=== PATIENT | male | born 1945 | race Caucasian/White ===

== ENCOUNTER 2021-05-27 01:19 | Inpatient (IN) | payer MEDICARE ==
[~2021-05-27] VITALS: Ht 180.3 cm; Wt 106.5 kg
[2021-05-27] MEDS ORDERED: ASPIRIN 81 MG TABLET CHEW PO ONE (02:00)
[2021-05-27 02:08] LABS: BASOPHILS % (AUTO) 1 % (0-1); EOSINOPHILS % (AUTO) 2 % (1-7); LYMPHOCYTES % (AUTO) 9 % (22-44); MEAN CORPUSCULAR HEMOGLOBIN 28.8 pg (27.5-34.5); MEAN CORPUSCULAR HGB CONC 32.3 g/dL (33.2-36.2); MEAN PLATELET VOLUME 7.8 fL (7.4-10.4); MONOCYTES % (AUTO) 11 % (2-9); NEUTROPHILS % (AUTO) 77 % (42-75); PLATELET COUNT 153 x10^3/uL (130-400); RED BLOOD COUNT 5.21 x10^6/uL (4.38-5.82); RED CELL DISTRIBUTION WIDTH 16.9 % (9.4-14.8)
[2021-05-27] MEDS ORDERED: ASPIRIN 81 MG TABLET CHEW ONE (02:15)
[2021-05-27 02:18] LABS: ALANINE AMINOTRANSFERASE 84 U/L (12-78); ALBUMIN 3.2 g/dL (3.4-5.0); ANION GAP 11 mmol/L (5-15); CALCIUM 8.8 mg/dL (8.5-10.1); CHLORIDE 97 mmol/L (98-107); CREATININE 2.32 mg/dL (0.7-1.3)
[2021-05-27 02:22] LABS: ALKALINE PHOSPHATASE 83 U/L (45-117); BILIRUBIN,TOTAL 1.3 mg/dL (0.2-1.0); TOTAL PROTEIN 6.9 g/dL (6.4-8.2)
[2021-05-27 02:37] LABS: TROPONIN I 0.225 ng/mL (0.000-0.045)
[2021-05-27] MEDS ORDERED: HEPARIN 5,000 UNITS/ML, 1ML IV PRN (03:30)
[2021-05-27] MEDS ORDERED: HEPARIN 5,000 UNITS/ML, 1ML IV ONE (03:30)
[2021-05-27] MEDS ORDERED: HEPARIN 25,000 UNITS/250ML PMX 250 ML ONE (03:31)
[2021-05-27] MEDS ORDERED: HEPARIN 5,000 UNITS/ML, 1ML ONE (03:31)
[2021-05-27] MEDS: HEPARIN 25,000 UNITS/250ML PMX 250 ML IV PRN (03:46)
--- NOTE | 2021-05-27 04:17 | NUR ---
Pt placed in medical bed for comfort, able to move independently from [facility] to [facility] bed
[2021-05-27] MEDS ORDERED: NITROGLYCERIN 0.4 MG/SPRAY SL PRN (05:00)
[2021-05-27] MEDS: CEFTRIAXONE 1,000 MG in DEXTROSE 5% 50 ML IVPB SCH (05:00)
[2021-05-27] MEDS ORDERED: NITROGLYCERIN 0.4 MG BOTTLE (25 TABS) SL PRN (05:00)
[2021-05-27] MEDS ORDERED: PROCHLORPERAZINE 10MG TABLET PO PRN (05:00)
[2021-05-27] MEDS ORDERED: PHARMACY MAY ADJ FOR RENAL FX MC PRN (05:00)
--- NOTE | 2021-05-27 05:42 | NUR ---
Pt removed IV when repositioning self in bed. RN notified pt about using caution when repositioning to ensure newly placed IV stays intact. WCTM
[2021-05-27 05:46] LABS: HCT (SEDRATE) 47.4 % (39.2-51.8)
[2021-05-27 05:49] LABS: BASOPHILS % (AUTO) 1 % (0-1); EOSINOPHILS % (AUTO) 3 % (1-7); LYMPHOCYTES % (AUTO) 6 % (22-44); MEAN CORPUSCULAR HEMOGLOBIN 29.4 pg (27.5-34.5); MEAN CORPUSCULAR HGB CONC 32.9 g/dL (33.2-36.2); MEAN PLATELET VOLUME 8.4 fL (7.4-10.4); MONOCYTES % (AUTO) 3 % (2-9); NEUTROPHILS % (AUTO) 88 % (42-75); PLATELET COUNT 152 x10^3/uL (130-400); RED BLOOD COUNT 5.25 x10^6/uL (4.38-5.82)
[2021-05-27 05:51] LABS: ALANINE AMINOTRANSFERASE 103 U/L (12-78); ALBUMIN 3.3 g/dL (3.4-5.0); ANION GAP 12 mmol/L (5-15); CHLORIDE 96 mmol/L (98-107)
[2021-05-27 05:54] LABS: ALKALINE PHOSPHATASE 84 U/L (45-117); BILIRUBIN,TOTAL 1.7 mg/dL (0.2-1.0); CHOL/HDL RATIO 2.7; CHOLESTEROL, TOTAL 96 mg/dL (140-239); HDL CHOL % 38 % (26-37); HDL CHOLESTEROL (DIRECT) 36 mg/dL (40-60); LDL CHOLESTEROL,CALCULATED 43 mg/dL (54-169); LDL/HDL RATIO 1.2 (0.5-3.0); TRIGLYCERIDES 84 mg/dL (50-200); VLDL CHOLESTEROL 17 mg/dL (0-25)
[2021-05-27] MEDS: ALBUTEROL-IPRATROPIUM MDI INH INH SCH ×4 (06:00→21:00)
[2021-05-27 06:03] LABS: TROPONIN I 0.219 ng/mL (0.000-0.045)
--- NOTE | 2021-05-27 06:45 | NUR ---
REPORT FROM PATRICE PERALTA
--- NOTE | 2021-05-27 06:52 | NUR ---
report to Rickey IBRAHIM
[2021-05-27] MEDS ORDERED: ALBUTEROL/IPRATROPIUM 2.5MG/0.5MG, 3 ML ONE (07:07)
--- NOTE | 2021-05-27 07:20 | NUR ---
PT TOLERATED BREATHING TX WELL. NADN/VSS. CALL LIGHT WITHIN REACH. RESTING ON HOSPITAL BED. PT STATES NO NEEDS AT THIS TIME
--- NOTE | 2021-05-27 07:34 | NUR ---
KHUSHBU - [employer] DAUGHTER
[2021-05-27 08:28] LABS: TROPONIN I 0.183 ng/mL (0.000-0.045)
--- NOTE | 2021-05-27 08:56 | NUR ---
PT RESTING ON HOSPITAL BED, NADN/VSS. CALL LIGHT WITHIN REACH. BED IN LOWEST POSITION. PT DENIES ANY NEEDS AT THIS TIME
[2021-05-27] MEDS: SODIUM CHLORIDE FLUSH 10ML SYR IVF SCH ×2 (09:00→21:25)
[2021-05-27] MEDS ORDERED: ZINC SULFATE 220 MG CAPSULE PO SCH (09:00)
[2021-05-27] MEDS ORDERED: AMIODARONE 50 MG/ML, 3ML ONE (09:00)
[2021-05-27] MEDS ORDERED: ASCORBIC ACID 500 MG TABLET PO SCH (09:00)
[2021-05-27] MEDS ORDERED: ADENOSINE 6 MG/2 ML ONE (09:00)
--- NOTE | 2021-05-27 09:41 | NUR ---
rhinestone setter -dr azar at bs for eval
--- NOTE | 2021-05-27 10:21 | NUR ---
PT SITTING ON HOSPITAL BED, WATCHING TV. NADN/VSS. CALL LIGHT WITHIN REACH. PT UPDATED ON POC. COMFORT MEASURES PROVIDED.
[2021-05-27 10:30] LABS: D-DIMER 1.08 ug/mlFEU (0.00-0.52); INTERNATIONAL NORMALIZED RATIO 1.17 (0.93-1.1); PROTHROMBIN TIME 12.4 Seconds (9.6-11.5)
--- NOTE | 2021-05-27 11:02 | NUR ---
EKG DONE ON PT. PT RESTING ON BED. NADN/VSS. PT DENIES ANY NEEDS AT THIS TIME. BED IN LOWEST POSITION, CALL LIGHT WITHIN REACH
--- NOTE | 2021-05-27 12:00 | NUR ---
PT AMBULATORY TO BR WITH UPRIGHT STEADY GAIT
--- NOTE | 2021-05-27 12:52 | NUR ---
Pt to be admitted to [facility], room 522-2. Report called to STEPHANIE.
[2021-05-27] MEDS ORDERED: REMDESIVIR 100 MG in SODIUM CHLORIDE 0.9% 250 ML IVPB ONE ×2 (13:00→21:00)
--- NOTE | 2021-05-27 13:00 | NUR ---
PT PROVIDED CARDIAC DIET TRAY
[2021-05-27 14:47] VITALS: BP 98/67
[2021-05-27] MEDS: CHOLECALCIFEROL 5,000u TAB PO SCH (14:58)
[2021-05-27] MEDS: ZINC SULFATE 220 MG CAPSULE PO SCH (14:59)
[2021-05-27] MEDS ORDERED: LINA5TAB PO (15:11)
[2021-05-27] MEDS ORDERED: [UNRECOGNIZED DRUG - CODE] PO (15:11)
[2021-05-27] MEDS ORDERED: METF100P3 PO (15:11)
[2021-05-27] MEDS ORDERED: TRAZ-96 PO (15:11)
[2021-05-27] MEDS ORDERED: ATOR40TA78 PO (15:11)
[2021-05-27] MEDS ORDERED: FURO40TA6 PO (15:11)
[2021-05-27] MEDS ORDERED: SACU1TAB7 PO (15:11)
[2021-05-27] MEDS ORDERED: CARV6.25 PO (15:11)
[2021-05-27] MEDS ORDERED: MIDAZOLAM 1 MG/ML, 5ML IV ONE (17:00)
[2021-05-27] MEDS: DEXAMETHASONE 4 MG/ML, 1ML IVPush SCH (17:28)
[2021-05-27] MEDS ORDERED: FILTER 0.22 MICRON IV PRN (17:30)
[2021-05-27 17:34] LABS: BASOPHILS % (AUTO) 1 % (0-1); EOSINOPHILS % (AUTO) 3 % (1-7); LYMPHOCYTES % (AUTO) 9 % (22-44); MEAN CORPUSCULAR HEMOGLOBIN 29.2 pg (27.5-34.5); MEAN CORPUSCULAR HGB CONC 32.8 g/dL (33.2-36.2); MEAN PLATELET VOLUME 8.3 fL (7.4-10.4); MONOCYTES % (AUTO) 4 % (2-9); NEUTROPHILS % (AUTO) 84 % (42-75); PLATELET COUNT 135 x10^3/uL (130-400); RED BLOOD COUNT 5.25 x10^6/uL (4.38-5.82)
[2021-05-27 17:37] LABS: ALANINE AMINOTRANSFERASE 368 U/L (12-78); ALBUMIN 3.3 g/dL (3.4-5.0); ANION GAP 10 mmol/L (5-15); CALCIUM 8.8 mg/dL (8.5-10.1); CHLORIDE 99 mmol/L (98-107); CREATININE 2.22 mg/dL (0.7-1.3)
[2021-05-27 17:41] LABS: ALKALINE PHOSPHATASE 95 U/L (45-117); BILIRUBIN,TOTAL 1.4 mg/dL (0.2-1.0); TROPONIN I 0.186 ng/mL (0.000-0.045)
[2021-05-27] MEDS: AMIODARONE 450 MG in DEXTROSE 5% 241 ML IV PRN (17:46)
[2021-05-27] MEDS ORDERED: CARVEDILOL 12.5 MG TABLET PO SCH (18:00)
[2021-05-27] MEDS: INSULIN LISPRO 100 UNITS/ML, PEN SQ-INSULIN SCH ×2 (18:19→21:23)
[2021-05-27 20:18] VITALS: BP 104/69
[2021-05-27] MEDS: MELATONIN 5 MG TABLET PO SCH (21:00)
[2021-05-27] MEDS ORDERED: ATORVASTATIN 40 MG TABLET PO SCH (21:00)
[2021-05-27] MEDS: THIAMINE 100MG TABLET PO SCH (21:25)
[2021-05-27] MEDS: ASCORBIC ACID 500 MG TABLET PO SCH (21:25)
[2021-05-27 23:48] LABS: TROPONIN I 0.265 ng/mL (0.000-0.045)
[2021-05-28] MEDS: AMIODARONE 450 MG in DEXTROSE 5% 241 ML IV PRN (00:45)
[2021-05-28 00:49] VITALS: BP 104/72
[2021-05-28] MEDS: HEPARIN 25,000 UNITS/250ML PMX 250 ML IV PRN (04:45)
[2021-05-28] MEDS: CEFTRIAXONE 1,000 MG in DEXTROSE 5% 50 ML IVPB SCH (05:04)
[2021-05-28] MEDS: ASPIRIN 325 MG TABLET EC PO SCH (05:04)
[2021-05-28] MEDS: ALBUTEROL-IPRATROPIUM MDI INH INH SCH ×4 (06:00→20:26)
[2021-05-28 06:06] LABS: HCT (SEDRATE) 44.6 % (39.2-51.8)
[2021-05-28 06:08] LABS: BASOPHILS % (AUTO) 0 % (0-1); EOSINOPHILS % (AUTO) 0 % (1-7); LYMPHOCYTES % (AUTO) 5 % (22-44); MEAN CORPUSCULAR HEMOGLOBIN 28.8 pg (27.5-34.5); MEAN CORPUSCULAR HGB CONC 32.5 g/dL (33.2-36.2); MEAN PLATELET VOLUME 8.6 fL (7.4-10.4); MONOCYTES % (AUTO) 10 % (2-9); NEUTROPHILS % (AUTO) 85 % (42-75); PLATELET COUNT 114 x10^3/uL (130-400); RED BLOOD COUNT 5.02 x10^6/uL (4.38-5.82); RED CELL DISTRIBUTION WIDTH 17.4 % (9.4-14.8)
[2021-05-28 06:16] LABS: ALBUMIN 2.7 g/dL (3.4-5.0); ANION GAP 12 mmol/L (5-15); CALCIUM 8.4 mg/dL (8.5-10.1); CHLORIDE 97 mmol/L (98-107); CREATININE 2.63 mg/dL (0.7-1.3)
[2021-05-28 06:29] LABS: ALANINE AMINOTRANSFERASE 2643 U/L (12-78); ALKALINE PHOSPHATASE 82 U/L (45-117); BILIRUBIN,TOTAL 1.4 mg/dL (0.2-1.0); TOTAL PROTEIN 6.3 g/dL (6.4-8.2)
[2021-05-28 07:25] VITALS: BP 94/64
[2021-05-28] MEDS: SODIUM CHLORIDE FLUSH 10ML SYR IVF SCH ×2 (09:00→20:13)
[2021-05-28] MEDS: DEXAMETHASONE 4 MG/ML, 1ML IVPush SCH (09:00)
[2021-05-28] MEDS: ZINC SULFATE 220 MG CAPSULE PO SCH (09:00)
[2021-05-28] MEDS: INSULIN LISPRO 100 UNITS/ML, PEN SQ-INSULIN SCH ×4 (09:00→20:26)
[2021-05-28] MEDS: CHOLECALCIFEROL 5,000u TAB PO SCH (09:00)
[2021-05-28] MEDS: THIAMINE 100MG TABLET PO SCH ×2 (09:02→20:12)
[2021-05-28] MEDS: ASCORBIC ACID 500 MG TABLET PO SCH ×2 (09:03→20:12)
[2021-05-28] MEDS: CARVEDILOL 6.25 MG TABLET PO SCH ×2 (09:05→18:15)
[2021-05-28] MEDS ORDERED: REMDESIVIR 50 MG in SODIUM CHLORIDE 0.9% 250 ML IVPB SCH (13:00)
[2021-05-28 13:32] VITALS: BP 98/68
[2021-05-28 20:05] VITALS: BP 96/64
[2021-05-28] MEDS: AMIODARONE 200 MG TABLET PO SCH (20:12)
[2021-05-28] MEDS: MELATONIN 5 MG TABLET PO SCH (20:13)
[2021-05-29 00:24] VITALS: BP 94/61
[2021-05-29] MEDS: ALBUTEROL-IPRATROPIUM MDI INH INH SCH ×4 (05:14→21:31)
[2021-05-29] MEDS: ASPIRIN 325 MG TABLET EC PO SCH (05:14)
[2021-05-29] MEDS: CEFTRIAXONE 1,000 MG in DEXTROSE 5% 50 ML IVPB SCH (05:14)
[2021-05-29] MEDS: CARVEDILOL 6.25 MG TABLET PO SCH (05:27)
[2021-05-29 05:28] VITALS: BP 90/62
[2021-05-29 05:39] LABS: BASOPHILS % (AUTO) 0 % (0-1); EOSINOPHILS % (AUTO) 0 % (1-7); LYMPHOCYTES % (AUTO) 4 % (22-44); MEAN CORPUSCULAR HEMOGLOBIN 28.7 pg (27.5-34.5); MEAN CORPUSCULAR HGB CONC 32.5 g/dL (33.2-36.2); MEAN PLATELET VOLUME 9.4 fL (7.4-10.4); MONOCYTES % (AUTO) 8 % (2-9); NEUTROPHILS % (AUTO) 88 % (42-75); PLATELET COUNT 116 x10^3/uL (130-400); RED BLOOD COUNT 5.26 x10^6/uL (4.38-5.82); RED CELL DISTRIBUTION WIDTH 16.6 % (9.4-14.8)
[2021-05-29 05:46] LABS: CHLORIDE 94 mmol/L (98-107)
[2021-05-29 06:02] LABS: ALANINE AMINOTRANSFERASE 2092 U/L (12-78); ALBUMIN 2.7 g/dL (3.4-5.0); ALKALINE PHOSPHATASE 87 U/L (45-117); ANION GAP 12 mmol/L (5-15); CALCIUM 8.7 mg/dL (8.5-10.1); CREATININE 3.06 mg/dL (0.7-1.3); TOTAL PROTEIN 6.1 g/dL (6.4-8.2)
[2021-05-29 07:42] VITALS: BP 92/67
[2021-05-29] MEDS: SODIUM CHLORIDE FLUSH 10ML SYR IVF SCH ×2 (08:47→21:32)
[2021-05-29] MEDS: ZINC SULFATE 220 MG CAPSULE PO SCH (08:47)
[2021-05-29] MEDS: CHOLECALCIFEROL 5,000u TAB PO SCH (08:47)
[2021-05-29] MEDS: THIAMINE 100MG TABLET PO SCH ×2 (08:47→21:30)
[2021-05-29] MEDS: ASCORBIC ACID 500 MG TABLET PO SCH ×2 (08:47→21:30)
[2021-05-29] MEDS: AMIODARONE 200 MG TABLET PO SCH ×2 (08:47→21:30)
[2021-05-29] MEDS: DEXAMETHASONE 4 MG/ML, 1ML IVPush SCH (08:47)
[2021-05-29] MEDS: INSULIN LISPRO 100 UNITS/ML, PEN SQ-INSULIN SCH ×4 (08:51→21:32)
[2021-05-29] MEDS: HEPARIN 25,000 UNITS/250ML PMX 250 ML IV PRN (10:44)
[2021-05-29] MEDS: HEPARIN 5,000 UNITS/ML, 1ML SQ SCH ×2 (13:11→21:30)
[2021-05-29 13:52] VITALS: BP 104/72
[2021-05-29] MEDS: CARVEDILOL 3.125 MG TABLET PO SCH (18:23)
[2021-05-29 20:37] VITALS: BP 108/66
[2021-05-29] MEDS: MELATONIN 5 MG TABLET PO SCH (21:30)
[2021-05-30] VITALS (17 sets, daily range): BP systolic 67–102; BP diastolic 46–71
[2021-05-30] MEDS: HEPARIN 5,000 UNITS/ML, 1ML SQ SCH ×4 (05:00→20:23)
[2021-05-30] MEDS: ASPIRIN 325 MG TABLET EC PO SCH (05:31)
[2021-05-30] MEDS: CARVEDILOL 3.125 MG TABLET PO SCH ×2 (05:31→17:46)
[2021-05-30] MEDS: CEFTRIAXONE 1,000 MG in DEXTROSE 5% 50 ML IVPB SCH (05:32)
[2021-05-30] MEDS: ALBUTEROL-IPRATROPIUM MDI INH INH SCH ×4 (05:33→20:25)
[2021-05-30 06:36] LABS: CHLORIDE 94 mmol/L (98-107)
[2021-05-30 06:44] LABS: BASOPHILS % (AUTO) 0 % (0-1); EOSINOPHILS % (AUTO) 0 % (1-7); LYMPHOCYTES % (AUTO) 3 % (22-44); MEAN CORPUSCULAR HGB CONC 32.8 g/dL (33.2-36.2); MEAN PLATELET VOLUME 8.9 fL (7.4-10.4); MONOCYTES % (AUTO) 4 % (2-9); NEUTROPHILS % (AUTO) 93 % (42-75); PLATELET COUNT 115 x10^3/uL (130-400); RED BLOOD COUNT 5.34 x10^6/uL (4.38-5.82); RED CELL DISTRIBUTION WIDTH 16.6 % (9.4-14.8)
[2021-05-30 06:45] LABS: HCT (SEDRATE) 47.2 % (39.2-51.8)
[2021-05-30 07:07] LABS: ALANINE AMINOTRANSFERASE 1459 U/L (12-78); ALBUMIN 2.4 g/dL (3.4-5.0); ALKALINE PHOSPHATASE 80 U/L (45-117); ANION GAP 13 mmol/L (5-15); CALCIUM 8.3 mg/dL (8.5-10.1); CREATININE 3.07 mg/dL (0.7-1.3); TOTAL PROTEIN 5.7 g/dL (6.4-8.2)
[2021-05-30] MEDS: ZINC SULFATE 220 MG CAPSULE PO SCH (08:24)
[2021-05-30] MEDS: AMIODARONE 200 MG TABLET PO SCH ×2 (08:24→20:21)
[2021-05-30] MEDS: DEXAMETHASONE 4 MG/ML, 1ML IVPush SCH (08:24)
[2021-05-30] MEDS: INSULIN LISPRO 100 UNITS/ML, PEN SQ-INSULIN SCH ×4 (08:24→20:25)
[2021-05-30] MEDS: THIAMINE 100MG TABLET PO SCH ×2 (08:25→20:22)
[2021-05-30] MEDS: SODIUM CHLORIDE FLUSH 10ML SYR IVF SCH ×2 (08:25→20:25)
[2021-05-30] MEDS: CHOLECALCIFEROL 5,000u TAB PO SCH (08:25)
[2021-05-30] MEDS: ASCORBIC ACID 500 MG TABLET PO SCH ×2 (08:25→20:22)
[2021-05-30] MEDS: INSULIN GLARGINE 100 UNITS/ML, PEN SQ-INSULIN SCH (09:04)
[2021-05-30] MEDS: MELATONIN 5 MG TABLET PO SCH (20:22)
[2021-05-31 02:00] VITALS: BP 92/56
[2021-05-31 02:02] VITALS: BP 74/55
[2021-05-31] MEDS: HEPARIN 5,000 UNITS/ML, 1ML SQ SCH ×3 (05:27→20:17)
[2021-05-31] MEDS: ASPIRIN 325 MG TABLET EC PO SCH (05:27)
[2021-05-31] MEDS: CEFTRIAXONE 1,000 MG in DEXTROSE 5% 50 ML IVPB SCH (05:27)
[2021-05-31] MEDS: CARVEDILOL 3.125 MG TABLET PO SCH ×2 (05:28→17:28)
[2021-05-31] MEDS: ALBUTEROL-IPRATROPIUM MDI INH INH SCH ×4 (05:28→20:13)
[2021-05-31 06:41] LABS: BASOPHILS % (AUTO) 0 % (0-1); EOSINOPHILS % (AUTO) 0 % (1-7); LYMPHOCYTES % (AUTO) 2 % (22-44); MEAN CORPUSCULAR HEMOGLOBIN 28.5 pg (27.5-34.5); MEAN CORPUSCULAR HGB CONC 32.7 g/dL (33.2-36.2); MEAN PLATELET VOLUME 8.9 fL (7.4-10.4); MONOCYTES % (AUTO) 5 % (2-9); NEUTROPHILS % (AUTO) 93 % (42-75); PLATELET COUNT 117 x10^3/uL (130-400); RED BLOOD COUNT 5.15 x10^6/uL (4.38-5.82); RED CELL DISTRIBUTION WIDTH 16.5 % (9.4-14.8)
[2021-05-31 06:50] LABS: ANION GAP 14 mmol/L (5-15); CALCIUM 8.7 mg/dL (8.5-10.1); CHLORIDE 92 mmol/L (98-107)
[2021-05-31 06:59] VITALS: BP 105/65
[2021-05-31 06:59] LABS: ALANINE AMINOTRANSFERASE 1253 U/L (12-78); ALBUMIN 2.4 g/dL (3.4-5.0); ALKALINE PHOSPHATASE 72 U/L (45-117); BILIRUBIN,TOTAL 0.8 mg/dL (0.2-1.0); CREATININE 3.13 mg/dL (0.7-1.3); TOTAL PROTEIN 5.5 g/dL (6.4-8.2)
[2021-05-31] MEDS: THIAMINE 100MG TABLET PO SCH ×2 (09:08→20:17)
[2021-05-31] MEDS: SODIUM CHLORIDE FLUSH 10ML SYR IVF SCH ×2 (09:08→20:17)
[2021-05-31] MEDS: AMIODARONE 200 MG TABLET PO SCH ×2 (09:08→20:16)
[2021-05-31] MEDS: ASCORBIC ACID 500 MG TABLET PO SCH ×2 (09:08→20:16)
[2021-05-31] MEDS: ZINC SULFATE 220 MG CAPSULE PO SCH (09:08)
[2021-05-31] MEDS: CHOLECALCIFEROL 5,000u TAB PO SCH (09:09)
[2021-05-31] MEDS: DEXAMETHASONE 4 MG/ML, 1ML IVPush SCH (09:09)
[2021-05-31] MEDS: INSULIN LISPRO 100 UNITS/ML, PEN SQ-INSULIN SCH ×4 (10:28→20:28)
[2021-05-31] MEDS: INSULIN GLARGINE 100 UNITS/ML, PEN SQ-INSULIN SCH (10:59)
[2021-05-31 14:10] VITALS: BP 100/60
[2021-05-31] MEDS: MELATONIN 5 MG TABLET PO SCH (20:16)
[2021-05-31 20:46] VITALS: BP 90/61
[2021-06-01 00:32] VITALS: BP 92/60
[2021-06-01] MEDS: GUAIFENESIN/DM 200-20MG, 10ML UDC PO PRN ×2 (00:41→09:20)
[2021-06-01 06:05] LABS: BASOPHILS % (AUTO) 0 % (0-1); EOSINOPHILS % (AUTO) 0 % (1-7); LYMPHOCYTES % (AUTO) 1 % (22-44); MEAN CORPUSCULAR HEMOGLOBIN 29.2 pg (27.5-34.5); MEAN CORPUSCULAR HGB CONC 33.5 g/dL (33.2-36.2); MONOCYTES % (AUTO) 7 % (2-9); NEUTROPHILS % (AUTO) 92 % (42-75); PLATELET COUNT 132 x10^3/uL (130-400); RED BLOOD COUNT 5.39 x10^6/uL (4.38-5.82); RED CELL DISTRIBUTION WIDTH 16.5 % (9.4-14.8)
[2021-06-01 06:06] LABS: CHLORIDE 95 mmol/L (98-107)
[2021-06-01 06:28] LABS: ALBUMIN 2.6 g/dL (3.4-5.0); ALKALINE PHOSPHATASE 79 U/L (45-117); ANION GAP 16 mmol/L (5-15); BILIRUBIN,TOTAL 0.8 mg/dL (0.2-1.0); CALCIUM 8.8 mg/dL (8.5-10.1); CREATININE 3.13 mg/dL (0.7-1.3); TOTAL PROTEIN 5.9 g/dL (6.4-8.2)
[2021-06-01] MEDS: ALBUTEROL-IPRATROPIUM MDI INH INH SCH ×4 (06:39→21:05)
[2021-06-01] MEDS: CEFTRIAXONE 1,000 MG in DEXTROSE 5% 50 ML IVPB SCH (06:39)
[2021-06-01] MEDS: ASPIRIN 325 MG TABLET EC PO SCH (06:39)
[2021-06-01] MEDS: HEPARIN 5,000 UNITS/ML, 1ML SQ SCH ×3 (06:39→21:04)
[2021-06-01 06:40] VITALS: BP 100/66
[2021-06-01] MEDS: CARVEDILOL 3.125 MG TABLET PO SCH ×2 (06:44→17:49)
[2021-06-01 06:46] LABS: ALANINE AMINOTRANSFERASE 1309 U/L (12-78)
[2021-06-01 07:18] LABS: ANISOCYTOSIS 1+
[2021-06-01 07:19] LABS: CRENATED 2+
[2021-06-01 07:20] LABS: <PLATELET ESTIMATE> ADEQUATE; <PLT MORPHOLOGY> NORMAL PLT MORPH; OVALOCYTES 1+; SPHEROCYTES 1+
[2021-06-01] MEDS: DEXAMETHASONE 4 MG/ML, 1ML IVPush SCH (09:03)
[2021-06-01] MEDS: ZINC SULFATE 220 MG CAPSULE PO SCH (09:03)
[2021-06-01] MEDS: INSULIN GLARGINE 100 UNITS/ML, PEN SQ-INSULIN SCH (09:03)
[2021-06-01] MEDS: THIAMINE 100MG TABLET PO SCH ×2 (09:03→21:04)
[2021-06-01] MEDS: INSULIN LISPRO 100 UNITS/ML, PEN SQ-INSULIN SCH ×4 (09:03→21:05)
[2021-06-01] MEDS: AMIODARONE 200 MG TABLET PO SCH ×2 (09:04→21:04)
[2021-06-01] MEDS: ASCORBIC ACID 500 MG TABLET PO SCH ×2 (09:04→21:04)
[2021-06-01] MEDS: CHOLECALCIFEROL 5,000u TAB PO SCH (09:04)
[2021-06-01] MEDS: SODIUM CHLORIDE FLUSH 10ML SYR IVF SCH ×2 (09:04→21:05)
[2021-06-01 09:18] VITALS: BP 106/71
[2021-06-01 15:01] VITALS: BP 98/64
[2021-06-01 17:49] VITALS: BP 103/68
[2021-06-01 18:29] LABS: MICROSCOPIC NOT IND
[2021-06-01 18:33] LABS: POTASSIUM,URINE RANDOM 21 mmol/L; SODIUM,URINE RANDOM 13 mmol/L
[2021-06-01 18:34] LABS: CHLORIDE,URINE RANDOM < 10 mmol/L
[2021-06-01 19:23] VITALS: BP 100/65
[2021-06-01] MEDS: MELATONIN 5 MG TABLET PO SCH (21:04)
[2021-06-02 01:24] VITALS: BP 92/60
[2021-06-02 05:38] VITALS: BP 102/66
[2021-06-02] MEDS: ALBUTEROL-IPRATROPIUM MDI INH INH SCH ×4 (05:39→21:23)
[2021-06-02] MEDS: HEPARIN 5,000 UNITS/ML, 1ML SQ SCH ×3 (05:39→21:23)
[2021-06-02] MEDS: CEFTRIAXONE 1,000 MG in DEXTROSE 5% 50 ML IVPB SCH (05:39)
[2021-06-02] MEDS: ASPIRIN 81 MG TABLET EC PO SCH (05:40)
[2021-06-02] MEDS: CARVEDILOL 3.125 MG TABLET PO SCH ×2 (05:40→17:27)
[2021-06-02 06:00] LABS: BASOPHILS % (AUTO) 0 % (0-1); EOSINOPHILS % (AUTO) 0 % (1-7); LYMPHOCYTES % (AUTO) 1 % (22-44); MEAN CORPUSCULAR HEMOGLOBIN 28.4 pg (27.5-34.5); MEAN CORPUSCULAR HGB CONC 32.5 g/dL (33.2-36.2); MEAN PLATELET VOLUME 8.5 fL (7.4-10.4); MONOCYTES % (AUTO) 7 % (2-9); NEUTROPHILS % (AUTO) 91 % (42-75); PLATELET COUNT 115 x10^3/uL (130-400); RED BLOOD COUNT 5.46 x10^6/uL (4.38-5.82); RED CELL DISTRIBUTION WIDTH 16.9 % (9.4-14.8)
[2021-06-02 06:12] LABS: CHLORIDE 97 mmol/L (98-107)
[2021-06-02 06:27] LABS: ALANINE AMINOTRANSFERASE 998 U/L (12-78); ALBUMIN 2.7 g/dL (3.4-5.0); ALKALINE PHOSPHATASE 81 U/L (45-117); ANION GAP 14 mmol/L (5-15); CALCIUM 8.8 mg/dL (8.5-10.1); CREATININE 2.52 mg/dL (0.7-1.3); TOTAL PROTEIN 6.2 g/dL (6.4-8.2)
[2021-06-02] MEDS: ZINC SULFATE 220 MG CAPSULE PO SCH (09:00)
[2021-06-02 09:49] VITALS: BP 99/65
[2021-06-02] MEDS: INSULIN LISPRO 100 UNITS/ML, PEN SQ-INSULIN SCH ×4 (09:54→21:32)
[2021-06-02] MEDS: DEXAMETHASONE 4 MG/ML, 1ML IVPush SCH (09:56)
[2021-06-02] MEDS: SODIUM CHLORIDE FLUSH 10ML SYR IVF SCH ×2 (09:56→21:24)
[2021-06-02] MEDS: ASCORBIC ACID 500 MG TABLET PO SCH ×2 (09:56→21:23)
[2021-06-02] MEDS: THIAMINE 100MG TABLET PO SCH ×2 (09:57→21:22)
[2021-06-02] MEDS: CHOLECALCIFEROL 5,000u TAB PO SCH (09:57)
[2021-06-02] MEDS: AMIODARONE 200 MG TABLET PO SCH ×2 (09:57→21:22)
[2021-06-02] MEDS: INSULIN GLARGINE 100 UNITS/ML, PEN SQ-INSULIN SCH (10:00)
[2021-06-02 17:23] VITALS: BP 115/67
[2021-06-02 21:17] VITALS: BP 100/62
[2021-06-02] MEDS: SODIUM BICARBONATE 650 MG TABLET PO SCH (21:22)
[2021-06-02] MEDS: MELATONIN 5 MG TABLET PO SCH (21:23)
[2021-06-03 00:31] VITALS: BP 97/67
[2021-06-03] MEDS: GUAIFENESIN/DM 200-20MG, 10ML UDC PO PRN (00:31)
[2021-06-03 05:35] VITALS: BP 94/61
[2021-06-03] MEDS: ASPIRIN 81 MG TABLET EC PO SCH (05:35)
[2021-06-03] MEDS: HEPARIN 5,000 UNITS/ML, 1ML SQ SCH ×2 (05:35→13:00)
[2021-06-03] MEDS: ALBUTEROL-IPRATROPIUM MDI INH INH SCH ×2 (05:36→12:04)
[2021-06-03] MEDS: CARVEDILOL 3.125 MG TABLET PO SCH (05:36)
[2021-06-03 05:51] LABS: BASOPHILS % (AUTO) 0 % (0-1); EOSINOPHILS % (AUTO) 0 % (1-7); LYMPHOCYTES % (AUTO) 1 % (22-44); MEAN CORPUSCULAR HEMOGLOBIN 28.7 pg (27.5-34.5); MEAN CORPUSCULAR HGB CONC 32.8 g/dL (33.2-36.2); MEAN PLATELET VOLUME 8.6 fL (7.4-10.4); MONOCYTES % (AUTO) 6 % (2-9); NEUTROPHILS % (AUTO) 93 % (42-75); PLATELET COUNT 120 x10^3/uL (130-400); RED BLOOD COUNT 5.42 x10^6/uL (4.38-5.82)
[2021-06-03 06:14] LABS: CHLORIDE 98 mmol/L (98-107)
[2021-06-03 06:28] LABS: ALANINE AMINOTRANSFERASE 730 U/L (12-78); ALBUMIN 2.7 g/dL (3.4-5.0); ALKALINE PHOSPHATASE 78 U/L (45-117); ANION GAP 12 mmol/L (5-15); BILIRUBIN,TOTAL 1.2 mg/dL (0.2-1.0); CALCIUM 9.2 mg/dL (8.5-10.1); CREATININE 2.18 mg/dL (0.7-1.3); TOTAL PROTEIN 6.2 g/dL (6.4-8.2)
[2021-06-03] MEDS: INSULIN LISPRO 100 UNITS/ML, PEN SQ-INSULIN SCH ×2 (08:06→12:06)
[2021-06-03] MEDS: DEXAMETHASONE 4 MG/ML, 1ML IVPush SCH (08:06)
[2021-06-03] MEDS: SODIUM CHLORIDE FLUSH 10ML SYR IVF SCH (08:06)
[2021-06-03] MEDS: SODIUM BICARBONATE 650 MG TABLET PO SCH (08:06)
[2021-06-03] MEDS: ASCORBIC ACID 500 MG TABLET PO SCH (08:07)
[2021-06-03] MEDS: THIAMINE 100MG TABLET PO SCH (08:07)
[2021-06-03] MEDS: CHOLECALCIFEROL 5,000u TAB PO SCH (08:07)
[2021-06-03] MEDS: AMIODARONE 200 MG TABLET PO SCH (08:07)
[2021-06-03] MEDS: ZINC SULFATE 220 MG CAPSULE PO SCH (08:07)
[2021-06-03] MEDS: INSULIN GLARGINE 100 UNITS/ML, PEN SQ-INSULIN SCH (08:08)
[2021-06-03 08:15] VITALS: BP 94/63
[2021-06-03] MEDS ORDERED: AMIO200T42 PO (09:50)
[2021-06-03] MEDS ORDERED: CARV3.1212 PO (09:50)
[2021-06-03] MEDS ORDERED: THIA100T67 PO (09:50)
[2021-06-03] MEDS ORDERED: ASPI81TA45 PO (09:50)
[2021-06-03] MEDS ORDERED: ASCO500T9 PO (09:50)
[2021-06-03] MEDS ORDERED: INSU100I13 SQ-INSULIN (09:50)
[2021-06-03] MEDS ORDERED: CHOL500045 PO (09:50)
[2021-06-03] MEDS ORDERED: SODI650T PO (09:50)
== END 2021-06-03 14:51 | disposition hospice, home (50) | DRG 177 ==
LOC: ED 01:30 → EDIP 04:35 → 5SO 13:41
PROVIDERS: ADMIT Internal Medicine; ATTEND Family Medicine
PROC: XW033E5 Introduction of Remdesivir Anti-infective into Peripheral Vein, Percutaneous Approach, New Technology Group 5 (ICD-10-PCS; principal; 2021-05-27)
PROC: 5A2204Z Restoration of Cardiac Rhythm, Single (ICD-10-PCS; 2021-05-27)
DX: U07.1 COVID-19 (principal); J96.01 Acute respiratory failure with hypoxia; J12.82 Pneumonia due to coronavirus disease 2019; I21.4 Non-ST elevation (NSTEMI) myocardial infarction; I50.23 Acute on chronic systolic (congestive) heart failure; E87.2 Acidosis; E87.1 Hypo-osmolality and hyponatremia; I13.0 Hypertensive heart and chronic kidney disease with heart failure and stage 1 through stage 4 chronic kidney disease, or unspecified chronic kidney disease; I42.8 Other cardiomyopathies; N17.9 Acute kidney failure, unspecified; N18.4 Chronic kidney disease, stage 4 (severe); E11.22 Type 2 diabetes mellitus with diabetic chronic kidney disease; E78.5 Hyperlipidemia, unspecified; E11.65 Type 2 diabetes mellitus with hyperglycemia; E83.51 Hypocalcemia; I95.9 Hypotension, unspecified; R74.01 Elevation of levels of liver transaminase levels; R91.1 Solitary pulmonary nodule; D69.6 Thrombocytopenia, unspecified; E66.9 Obesity, unspecified; Z95.0 Presence of cardiac pacemaker; Z68.32 Body mass index [BMI] 32.0-32.9, adult
CPT/HCPCS: 36415; 71045; 76700; 76770; 78580; 80053; 80061; 81003; 82306; 82330; 82436; 82728; 82947; 82962; 83615; 83735; 83880; 83935; 84100; 84133; 84145; 84300; 84484; 84550; 85025; 85379; 85384; 85520; 85610; 85651; 85730; 86140; 87040; 87205; 93005; 96365; 96375; 99285; C8929; G0378; J0153; J0696; J1100; J1644; J7060; Q9957; A9540; J0282; J1815; J7050